=== PATIENT | male | born 1985 | race African-American/Black ===

== ENCOUNTER 2017-06-25 19:09 | Emergency (ER) | payer OTHER, BC ==
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
== END 2017-06-25 20:40 | disposition home or self-care (01) ==
LOC: JD.ED 19:09
DX: S80.02XA Contusion of left knee, initial encounter (principal); S80.01XA Contusion of right knee, initial encounter; S80.212A Abrasion, left knee, initial encounter; S80.211A Abrasion, right knee, initial encounter; V43.92XA Unspecified car occupant injured in collision with other type car in traffic accident, initial encounter
CPT/HCPCS: 99283; 99284

== ENCOUNTER 2017-07-02 17:13 | Emergency (ER) | payer OTHER, BC ==
[2017-07-02] MEDS ORDERED: Sodium Chloride 0.9% 1,000 ML IV ONE (17:43)
[2017-07-02] MEDS ORDERED: diphenhydrAMINE 50 MG/ML SDV IVPUSH ONE (17:44)
[2017-07-02] MEDS ORDERED: Ondansetron 4 MG/2 ML SDV IVPUSH ONE (17:44)
[2017-07-02] MEDS ORDERED: Sodium Chloride 0.9% 10 ML Syringe FLUSH PRN (17:44)
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
--- NOTE | 2017-07-02 18:33 | CT ---
Head CT Technique: Multiple axial sections through the brain were obtained. Intravenous contrast was not utilized. Comparison: No previous intracranial imaging. Findings: Ventricles along with basal cisterns and sulci over the convexities are within normal limits for the patient's age. No abnormal parenchymal densities are seen. No evidence of intracranial hemorrhage. No midline shift or mass effect is seen. Bone window settings were reviewed which show a fluid level within the left maxillary sinus. No acute calvarial abnormality is seen. Impression: 1. Fluid level within the left maxillary sinus raising the possibility of sinusitis. Please correlate. 2. No additional abnormality is identified on noncontrast head CT exam. Diagnostic code #3
[2017-07-02] MEDS ORDERED: Ketorolac 30 MG/ML SDV IVPUSH ONE (18:50)
== END 2017-07-02 19:30 | disposition home or self-care (01) ==
LOC: JD.ED 17:13
DX: J10.1 Influenza due to other identified influenza virus with other respiratory manifestations (principal); J32.9 Chronic sinusitis, unspecified
CPT/HCPCS: 70450; 87804; 96361; 96374; 96375; 99284; J1200; J1885; J2405; J7040; J7050

== ENCOUNTER 2021-09-29 07:32 | Emergency (ER) | payer BC, OTHER ==
[2021-09-29] MEDS ORDERED: Ketorolac 30 MG/ML SDV IM ONE (09:04)
== END 2021-09-29 10:09 | disposition home or self-care (01) ==
LOC: JD.ED 07:32
DX: M54.50 Low back pain, unspecified (principal)
CPT/HCPCS: 96372; 99283; J1885